=== PATIENT | male | born 1975 | race Caucasian/White ===

== ENCOUNTER 2021-10-21 22:19 | Emergency (ER) | payer OTHER, SELFPAY ==
[2021-10-21 22:35] VITALS: BP 145/76; PULSE 87; RESP 16; TEMP 36.8; O2SAT 100; BMI 28.5
[2021-10-22] MEDS: Ketorolac Tromethamine 30 MG/ML VIAL IM (00:01)
[2021-10-22] MEDS: predniSONE 20 MG TABLET 60 MG PO (00:01)
--- NOTE | 2021-10-22 00:13 | ED_ITS ---
HPI - General Adult General Chief complaint: Neck Pain/Injury Stated complaint: Neck/Back pain Time Seen by Provider: 10/21/21 23:09 Source: patient Mode of arrival: ambulatory Limitations: no limitations History of Present Illness HPI narrative: 46-year-old male with history of chronic cervical disc herniation and lower back disc herniation presents to ED for chronic neck and back pain exacerbation. Patient states no trauma, fever, chills, or any urinary/bowel incontinence. Patient denies any fever chills. Patient states no IV drug use or history of any immunocompromised diseases. Related Data Previous Rx's Medication Instructions Recorded ketorolac 10 mg tablet 10 mg PO TID PRN 5 Days #20 tab 10/22/21 prednisone 20 mg tablet 40 mg PO DAILY 5 Days #10 tab 10/22/21 Allergies Allergy/AdvReac Type Severity Reaction Status Date / Time No Known Allergies Allergy Unverified 05/14/20 16:35 Review of Systems Review of Systems: Chronic neck and back pain Yes all other systems are reviewed and are negative [facility] Social History Social History Advance Directives: No Physical Exam ED Vital Signs: Vital Signs - 24 hr 10/21/21 22:35 Temperature 98.2 F Pulse Rate 87 Respiratory Rate 16 Blood Pressure 145/76 H Pulse Oximetry 100 BMI result Body Mass Index 28.5 Const General: cooperative, healthy appearing, comfortable, no acute distress, well developed, alert, awake and Physically active Orientation/consciousness: patient oriented x3 HENMT Head: Yes normal to inspection, Yes No palpable skull fracture present, Yes normocephalic, Yes atraumatic and No abrasion Eyes General: appearance normal, both eyes and all related structures Neck Neck: Yes normal visual inspection, Yes full ROM, Yes no lymphadenopathy, Yes no meningeal signs, Yes trachea midline, Yes supple, No anterior neck swelling and Yes tender (posterior cervical) Chest Chest palpation & inspection: normal inspection of the chest and normal palpation of entire chest wall Resp Effort & Inspection: normal respiratory effort and able to speak in complete sentences Auscultation: clear to auscultation bilaterally Cardio Jugular venous distension: no JVD Heart sounds: S1 normal heart sound present and S2 normal heart sound present GI Inspection: Yes normal to inspection and No abdominal wall ecchymosis Palpation (GI): Soft to palpation, not firm, nontender, no guarding and not rigid General: No CVA tenderness and Yes no CVA tenderness Back/Spine/Pelvis Back: no CVA tenderness, No CVA tenderness and back tenderness (mild lumbar) Skin General skin exam: no rashes or lesions noted and elasticity normal Neuro General: patient oriented x3, gait normal, no meningeal signs and CN's II-XI intact bilaterally Cranial nerves: Yes CN's II-XII intact bilaterally Extrem General: Yes normal to inspection and Yes full ROM Psych Appearance: grossly normal, well kempt and not disheveled Course Course Course Narrative: No need for repeat imaging. Symptoms are chronic. Pain med ordered. Reevaluation(s) Reevaluation #1: Patient feels better after pain meds. Patient to be discharged Time: 00:18 Medical Decision Making MDM Narrative Medical decision making narrative: Cervical/lumbar radicular pattern Discharge Plan Discharge Clinical Impression: Cervical radiculopathy, Chronic lumbar radiculopathy Patient Disposition: Home, Self-Care Instructions: Lumbar Radiculopathy (ED), Cervical Radiculopathy (ED) Additional Instructions: You will be discharged with pain medication and steroid. Please follow-up with primary care provider. Return to the ED immediately for worsening neck/back pain, fever, chills, urinary/bowel incontinence, paralysis or tingling upper extremities, or any other concerning symptoms. Prescriptions: New prednisone 20 mg tablet 40 mg PO DAILY 5 Days Qty: 10 0RF ketorolac 10 mg tablet 10 mg PO TID PRN (Reason: pain) 5 Days Qty: 20 0RF Rx Instructions: Patient received 30mg IM toradol in the ED. Stand Alone Forms: Work/School Release Interventions: ED Discharge Assessment Last Done: 10/22/21 00:57 Discharge Date/Time: 10/22/21 00:58 Print Language: Estonian
== END 2021-10-22 00:58 | disposition home or self-care (01) ==
PROVIDERS: Emergency Provider Internal Medicine
DX: M54.12 Radiculopathy, cervical region (principal); M54.16 Radiculopathy, lumbar region; M54.50 Low back pain, unspecified; M54.2 Cervicalgia
CPT/HCPCS: 96372; 99284; J1885

== ENCOUNTER 2022-04-20 12:26 | Emergency (ER) | payer OTHER, SELFPAY ==
--- NOTE | ~2022-04-20 | CT_ITS ---
EXAMINATION: CT HEAD WITHOUT CONTRAST CT CERVICAL SPINE WITHOUT CONTRAST CLINICAL INFORMATION: Right arm tingling. Left-sided numbness. Cervical disc herniation. COMPARISON: None available. TECHNIQUE: Contiguous axial imaging was performed from the skull base to vertex without intravenous administration of contrast. Contiguous axial imaging was performed from the upper chest through the skull base without intravenous administration of contrast. Coronal and sagittal reformats were obtained at the acquisition workstation. This CT examination was performed using dose optimization techniques as appropriate, variously including the following: *Automated exposure control. *Adjustment of mA and/or kV according to patient size (this includes techniques or standardized protocols for targeted exams where dose is matched to indication/reason for exam; i.e. extremities or head). *Use of iterative reconstruction technique. DLP: 1314 mGy-cm FINDINGS: Head: There is no evidence of acute intracranial hemorrhage or edematous territorial infarction. There is no abnormal attenuation within the brain parenchyma. Wilder-white matter differentiation is preserved. The ventricles are normal in size and configuration. No evidence for obstructive hydrocephalus. No abnormal mass effect or midline shift. No extra-axial fluid collections. No acute soft tissue or osseous abnormalities. Mild mucosal thickening of the paranasal sinuses. The mastoid air cells and middle ear cavities are clear. Cervical Spine: The atlantooccipital and atlantoaxial articulations remain well aligned. Straightening of the normal cervical lordosis. Otherwise, there is anatomic alignment of the vertebral bodies and posterior elements. No evidence of acute fracture or subluxation. The vertebral body heights are maintained. Moderate degenerative disc disease at C5-C6 with disc-osteophyte complex formation. Mild degenerative disc disease at all additional cervical levels. Facet and uncovertebral joint arthropathy leads osseous encroachment on the neural foramina at C5-C6. There is no prevertebral soft tissue swelling. The thyroid gland and remaining cervical soft tissues are normal in appearance. Moderate paraseptal emphysema of the visualized lung apices. CT/CT cervical spine wo con IMPRESSION: 1. No acute intracranial hemorrhage or edematous territorial infarction. 2. No evidence of acute fracture or traumatic subluxation of the cervical spine. Mild to moderate multilevel degenerative spondyloarthropathy of the cervical spine (most notably at C5-C6).
[2022-04-20 12:34] VITALS: BP 118/75; PULSE 79; RESP 18; TEMP 36.6; O2SAT 98; BMI 27.1
[2022-04-20] MEDS: Ketorolac Tromethamine 30 MG/ML VIAL IM (14:52)
--- NOTE | 2022-04-20 15:11 | ED_ITS ---
HPI - Neck Pain/Injury General Chief Complaint: Neck Pain/Injury Stated Complaint: whole left side numbness Time Seen by Provider: 04/20/22 14:18 Source: patient Mode of arrival: ambulatory History of Present Illness HPI Narrative: 47-year-old male with a past medical history of herniated discs, presenting to the ED complaining of acute on chronic left arm numbness/ tingling and weakness x months. States symptoms have been worsening over the past few days/week. Admits went to urgent care last week for similar symptoms prescribed Prednisone with minimal relief. Also reports intermittent numbness down LLE. Denies fever, chills, headache, vision loss, fever, trauma/fall, CP/SOB, urinary incontinence/retention. Denies taking anticoagulation. MD complaint: neck pain Onset (ago): day(s) Related Data Previous Rx's Medication Instructions Recorded ketorolac 10 mg tablet 10 mg PO TID PRN pain 5 days #20 10/22/21 tabs prednisone 20 mg tablet 40 mg PO DAILY 5 days #10 tabs 10/22/21 acetaminophen 500 mg tablet 500 mg PO Q6H PRN fever or pain 04/20/22 (Tylenol Extra Strength) #14 tabs cyclobenzaprine 5 mg tablet 5 mg PO Q8H PRN pain (scale score 04/20/22 7-10) 5 days #14 tabs lidocaine 5 % topical patch 1 patch topical DAILY PRN pain #30 04/20/22 (Lidoderm) ea naproxen 500 mg tablet 500 mg PO BID PRN pain 10 days #20 04/20/22 tabs Allergies Allergy/AdvReac Type Severity Reaction Status Date / Time No Known Allergies Allergy Unverified 05/14/20 16:35 Review of Systems Review of Systems: Constitutional: No Fever, No Chills, No Fatigue, No Malaise ENT/Mouth: No Ear Pain, No Nasal Congestion, No sore throat, No Swallowing Difficulty Eyes: No Eye Pain, No Swelling, No Redness, No Discharge, No Vision Changes Cardiovascular: No Chest Pain, No SOB, No Edema, No Palpitations Respiratory: No Cough, No Sputum, No Dyspnea Gastrointestinal: No Nausea, No Vomiting, No Diarrhea, No Constipation, No Abdominal pain Genitourinary: No Dysuria, No Hematuria, No Urinary Incontinence/retention, No Flank Pain Musculoskeletal: No joint pain, No Myalgias, No Joint Swelling Skin: No Skin Lesions, No rash Neuro: No Weakness, + Numbness, + Paresthesias, No Loss of Consciousness, No Dizziness, No Headache Yes all other systems are reviewed and are negative Constitutional: Constitutional: Reports as per [facility] Past Medical History Attestation statement: The following information was validated with the patient. Social History Social History Advance Directives: No Advance Directives Information Provided: No Physical Exam Vital Signs: Vital Signs: Last Vital Signs Temp 98 F 04/20/22 12:34 Pulse 79 04/20/22 12:34 Resp 18 04/20/22 12:34 BP 118/75 04/20/22 12:34 Pulse Ox 98 04/20/22 12:34 O2 Del Method 04/20/22 12:34 BMI result Body Mass Index 27.1 Const: General: cooperative, healthy appearing and no acute distress Orientation/consciousness: patient oriented x3 Limitations: no limitations HEENT: Head: Yes normal to inspection and Yes atraumatic Ears: hearing grossly normal bilaterally General nose exam: Normal external nose present Face and sinus: Yes normal facial exam Eyes: General: appearance normal, both eyes and all related structures Pupils: Equal, round and reactive pupils present EOM: EOMs intact bilaterally Neck: Other: No midline cervical spinous tenderness/step-off or deformity. No reproducible MSK tenderness or trapezius muscle tenderness Neck: Yes normal visual inspection and Yes no meningeal signs Resp: Effort & Inspection: normal respiratory effort and no respiratory distress Cardio: Rate: regular rate Heart sounds: S1 normal heart sound present and S2 normal heart sound present Back/Spine/Pelvis: Other: No midline thoracic/lumbar spinous tenderness/step-off or deformity Skin: Rashes: no rashes Wounds: no wounds Neuro: Other: Strength intact throughout. No saddle anesthesia. Sensation intact to light touch. Neurovascular intact distally General: patient oriented x3, gait normal, tone normal, moves all extremities, no meningeal signs, no focal motor deficits and CN's II-XI intact bilaterally Cranial nerves: Yes CN's II-XII intact bilaterally and Yes Equal, round and reactive pupils present Gait exam (Neuro): Normal gait present Motor exam (neuro): 5/5 motor strength present throughout Extrem: General: Yes normal to inspection Course Course Course Narrative: 1719-- CT head/brain wo con/CT cervical spine wo con IMPRESSION: 1. No acute intracranial hemorrhage or edematous territorial infarction. 2. No evidence of acute fracture or traumatic subluxation of the cervical spine. Mild to moderate multilevel degenerative spondyloarthropathy of the cervical spine (most notably at C5-C6). ? >>Results discussed with patient including worrisome signs and symptoms and strict return precautions, and when to return to the emergency department. They verbalized understanding and feel safe for discharge at this time. MDM - Neck Pain/Injury MDM Narrative Medical decision making narrative: 47-year-old male with a past medical history of herniated discs, presenting to the ED complaining of acute on chronic left arm numbness/ tingling and weakness x months. States symptoms have been worsening over the past few days/week. On exam VSS, NAD, well appearing, no midline spinous ttp, no red flag sx, no appreciable weakness. Concern for cervical radiculaopathy vs herniated discs vs MSK pain/spasming. Low suspicion for cauda equina/cord compression or epidural abscess. Lower suspicion for CVA/TIA Plan: Head/C-spine CT, neurosurgical follow-up Differential Diagnosis Differential diagnosis: Likely disc disorder of cervical region, cervical radiculopathy, torticollis and strain of neck muscle Medical Records Attestation: I reviewed the patient's medical records. Lab Data Attestation: I reviewed the patient's lab results. Discharge Plan Discharge Clinical Impression: Arthropathy of cervical spine Patient Disposition: Home, Self-Care Instructions: Neck Pain (ED) Additional Instructions: Your CT scan shows multilevel degenerative changes. Most notably at C5-C6. You need to follow-up with your doctor and a neurosurgeon specialist Flexeril is a muscle relaxer, take at night as it makes you drowsy, do not drive, drink alcohol, or operate machinery while taking it Naproxen as an anti-inflammatory / pain medication, take with food Lidoderm patches are numbing patches, apply to painful area In addition take Tylenol at home If symptoms persist or worsen, pain becomes unbearable, you developed urinary retention or incontinence, or weakness return to the ED Prescriptions: New acetaminophen [Tylenol Extra Strength] 500 mg tablet 500 mg PO Q6H PRN (Reason: fever or pain) Qty: 14 0RF lidocaine [Lidoderm] 5 % adhesive patch,medicated 1 patch topical DAILY MDD remove after 12 hours PRN (Reason: pain) Qty: 30 0RF Rx Instructions: leave on most painful area for up to 12 hrs naproxen 500 mg tablet 500 mg PO BID PRN (Reason: pain) 10 Days Qty: 20 0RF cyclobenzaprine 5 mg tablet 5 mg PO Q8H PRN (Reason: pain (scale score 7-10)) 5 Days Qty: 14 0RF No Action prednisone 20 mg tablet 40 mg PO DAILY 5 Days Qty: 10 0RF ketorolac 10 mg tablet 10 mg PO TID PRN (Reason: pain) 5 Days Qty: 20 0RF Rx Instructions: Patient received 30mg IM toradol in the ED. Referrals: Chikis Richmond MD [Physician] - Kadie Maher MD [Primary Care Provider] -
== END 2022-04-20 17:54 | disposition home or self-care (01) ==
PROVIDERS: Emergency Provider Emergency Medicine; PCP Internal Medicine
DX: M54.2 Cervicalgia (principal); R20.0 Anesthesia of skin; R51.9 Headache, unspecified; Z79.899 Other long term (current) drug therapy
CPT/HCPCS: 70450; 72125; 96372; 99282; 99283; 99284; J1885

== ENCOUNTER 2022-12-02 04:30 | Emergency (ER) | payer OTHER, SELFPAY ==
--- NOTE | 2022-12-02 | ECG_ITS ---
Test Reason : OVERDOSE Blood Pressure : / mmHG Vent. Rate : 085 BPM Atrial Rate : 085 BPM P-R Int : 186 ms QRS Dur : 094 ms QT Int : 404 ms P-R-T Axes : 071 051 059 degrees QTc Int : 480 ms Normal sinus rhythm Prolonged QT Abnormal ECG No previous ECGs available Referred By: Generic ED Physician Electronically Signed By:Orlando Alexander
[2022-12-02 04:37] VITALS: BP 157/97; BP 171/98; PULSE 104; PULSE 93; RESP 26; TEMP 36.1; O2SAT 92; O2SAT 98; BMI 27.2
--- NOTE | 2022-12-02 04:51 | PC.NURSE ---
Pt placed on capnography at this time, VSS.
[2022-12-02 04:53] VITALS: BP 153/95; PULSE 90; RESP 22; TEMP 36.4; O2SAT 96
[2022-12-02 05:21] LABS: Mean Platelet Volume 11.4 fL (9.4-12.4); PLT CLUMP 1; Red Cell Distribution Width 13.3 % (11.0-16.0); SCAN SMEAR FLAG 1
[2022-12-02 05:23] LABS: Basophils Percent Auto 0.4 % (0-2); Eosinophils Absolute Auto 0.3 X10*3/uL (0.0-0.4); Eosinophils Percent Auto 3.5 % (0-4); Hematocrit 44.2 % (42.0-52.0); Hemoglobin 14.4 g/dl (14.0-18.0); Imm Gran Abs Auto 0.02 X10*3/uL (0.00-0.03); Imm Gran Pct Auto 0.3 % (0.0-0.4); Lymphocytes Percent Auto 14.1 % (20-40); MANUAL DIFF FLAG NO; Mean Corpuscular HGB Conc 32.6 g/dl (31.0-36.0); Mean Corpuscular Hemoglobin 30.7 pg (27.0-33.0); Mean Corpuscular Volume 94.2 fL (80.0-98.0); Monocytes Absolute Auto 0.5 X10*3/uL (0.1-1.2); Monocytes Percent Auto 6.7 % (2-11); Neutrophils Absolute Auto 5.4 x10*3/uL (2.0-8.3); Red Blood Count 4.69 X10*6/uL (4.60-5.80); White Blood Count 7.2 X10*3/uL (4.8-10.8)
[2022-12-02 05:47] LABS: Platelet Count 165 X10*3/uL (160-400)
[2022-12-02 06:01] LABS: Alanine Aminotransferase 37 U/L (0-40); Albumin Level 4.4 g/dL (3.5-5.0); Alkaline Phosphatase 87 U/L (39-117); Anion Gap 23 (12-20); Aspartate Amino Transferase 40 U/L (5-37); Bilirubin Total 0.8 mg/dL (0.0-1.0); Blood Urea Nitrogen 13 mg/dL (9-16); Carbon Dioxide 25 mmol/L (22-29); Chloride 99 mmol/L (96-108); Creatinine Clr Calc Pharmacy 101.3; Estimated Glomerular Filt Rate > 60; Ethanol < 10 mg/dL; Glucose Random 263 mg/dL (60-115); Potassium 6.9 mmol/L (3.3-5.1); Salicylate < 5.0 mg/dL (15-30); Sodium 140 mmol/L (135-145); Total Protein 7.2 g/dL (6.5-8.0)
--- NOTE | 2022-12-02 06:23 | ED.OVERDOSE ---
HPI - Overdose General Chief Complaint: Overdose Stated Complaint: Overdose Time Seen by Provider: 12/02/22 06:13 Source: patient Limitations: no limitations History of Present Illness HPI Narrative: 47-year-old male who presents emergency department for evaluation of an overdose. The patient states that he had a neck surgery 3 weeks prior he was having pain. He states that he bought a Percocet on the street and took it orally. He apparently then passed out and was found unresponsive by his brother. First responders gave the patient intranasal Narcan 4 mg x 2 and the patient is now awake and alert. The patient states that yesterday did have vomiting. He states that he vomited 5-6 times. He denied fever, chills, rhinorrhea, sore throat. He states that he has a chronic cough secondary to COPD. He denied chest pain, abdominal pain. He denied diarrhea. Related Data Previous Rx's Medication Instructions Recorded ketorolac 10 mg tablet 10 mg PO TID PRN pain 5 days #20 10/22/21 tabs prednisone 20 mg tablet 40 mg PO DAILY 5 days #10 tabs 10/22/21 acetaminophen 500 mg tablet 500 mg PO Q6H PRN fever or pain 04/20/22 (Tylenol Extra Strength) #14 tabs cyclobenzaprine 5 mg tablet 5 mg PO Q8H PRN pain (scale score 04/20/22 7-10) 5 days #14 tabs lidocaine 5 % topical patch 1 patch topical DAILY PRN pain #30 04/20/22 (Lidoderm) ea naproxen 500 mg tablet 500 mg PO BID PRN pain 10 days #20 04/20/22 tabs Allergies Allergy/AdvReac Type Severity Reaction Status Date / Time No Known Allergies Allergy Unverified 05/14/20 16:35 Review of Systems Review of Systems: Yes all other systems are reviewed and are negative [facility] Past Medical History [facility] Narrative: Past medical history: Asthma, COPD. Past surgical history: Neck surgery 3 weeks prior, patient has had other orthopedic surgeries in the past as well including his right knee, right shoulder and lower back operated on. Social history: He smokes 1 pack of cigarettes per day times many years. He denies alcohol use. He states that he uses marijuana daily and he rarely uses opiates. Social History Social History Alcohol intake: current Smoked in Last 30 Days: No Advance Directives: No Advance Directives Information Provided: Yes Physical Exam Vital Signs: Vital Signs: Last Vital Signs Temp 97.5 F 12/02/22 04:53 Pulse 90 12/02/22 04:53 Resp 22 H 12/02/22 04:53 BP 153/95 H 12/02/22 04:53 Pulse Ox 96 12/02/22 04:53 O2 Del Method Nasal Cannula 12/02/22 04:53 O2 Flow Rate 2 12/02/22 04:53 Oxygen Flow Rate 2 12/02/22 04:37 BMI result Body Mass Index 27.2 Const: General: cooperative and no acute distress Orientation/consciousness: oriented to person and oriented to place Limitations: no limitations HEENT: Head: Yes normal to inspection, Yes normocephalic and Yes atraumatic Ears: external ears normal General nose exam: Normal external nose present Face and sinus: Yes normal facial exam Mouth: Normal oral and palatal mucosa present Throat: Yes posterior oropharynx normal Eyes: General: appearance normal, both eyes and all related structures Pupils: Equal, round and reactive pupils present Neck: Neck: Yes normal visual inspection, Yes no lymphadenopathy, Yes trachea midline and Yes supple Chest: Chest palpation & inspection: normal inspection of the chest and normal palpation of entire chest wall Resp: Effort & Inspection: normal respiratory effort and able to speak in complete sentences Auscultation: clear to auscultation bilaterally Cardio: Rate: regular rate Rhythm: regular rhythm Heart sounds: S1 normal heart sound present, S2 normal heart sound present and no murmurs GI: Inspection: Yes normal to inspection Palpation (GI): Soft to palpation, nontender and no guarding Auscultation: normal bowel sounds : General: Yes no CVA tenderness Back/Spine/Pelvis: Back: no CVA tenderness Skin: General skin exam: no rashes or lesions noted Neuro: General: oriented to person and oriented to place Cranial nerves: Yes CN's II-XII intact bilaterally and Yes Equal, round and reactive pupils present Cognition (Neuro): normal cognition Motor exam (neuro): 5/5 motor strength present throughout Extrem: General: Yes normal to inspection Psych: Appearance: grossly normal Speech and movement: Normal speech and movement present Affect: normal affect Attitude: cooperative Thought process: Normal thought process present Thought content: Normal thought content present Medical Decision Making Medical Decision Making [facility] Narrative: 47-year-old male who is brought to emergency department by ambulance after being found unresponsive by his brother with respiratory distress. The patient does admit to taking 1 Percocet that he bought on the street. Patient did receive Narcan 4 mg intranasally x2 which caused him to wake up and come back to his baseline. Patient states that he was vomiting multiple times yesterday but had no other complaints. I did order laboratory evaluation to include CBC, CMP, urine drug screen, alcohol level, salicylates, 12 EKG. 0627: My independent interpretation of the patient's laboratory evaluation is as follows: CBC was normal. Glucose was elevated 265. BUN and creatinine were normal 13 and 0.95. Potassium size 6.9. Twelve EKG was unremarkable with no peaked T-waves. Patient's presentation is consistent with an narcotic overdose. The patient does have a high potassium 6.9 without a clear cause, the patient's EKG did not reveal any significant abnormalities or peaked T-waves. I will repeat the patient's potassium. The patient will be observed in the emergency department for several hours per the patient will need SUDE exam as well. 0752: Repeat potassium was 3.8. The patient will be kept in the emergency department for further observation to make sure that he does not have repeat narcosis. Patient is also waiting for his SUDE exam . At the end of my shift, patient's care was turned over to my colleague, Dr. Blanca Differential Diagnosis Differential diagnosis includes but is not limited to narcotic overdose, benzodiazepine overdose Lab Data [facility] Lab Attestation statement: I reviewed the patient's lab results. Please see [facility] 12/02/22 05:17 12/02/22 05:17 Labs: Lab Results 12/02/22 12/02/22 12/02/22 Range/Units 05:17 05:17 06:45 WBC 7.2 (4.8-10.8) X10*3/uL RBC 4.69 (4.60-5.80) X10*6/uL Hgb 14.4 (14.0-18.0) g/dl Hct 44.2 (42.0-52.0) % MCV 94.2 (80.0-98.0) fL MCH 30.7 (27.0-33.0) pg MCHC 32.6 (31.0-36.0) g/dl RDW 13.3 (11.0-16.0) % Plt Count 165 (160-400) X10*3/uL MPV 11.4 (9.4-12.4) fL Immature Gran % (Auto) 0.3 (0.0-0.4) % Neut % (Auto) 75.0 H (45-73) % Lymph % (Auto) 14.1 L (20-40) % [place] % (Auto) 6.7 (2-11) % Eos % (Auto) 3.5 (0-4) % Baso % (Auto) 0.4 (0-2) % Lymph # (Auto) 1.0 L (1.2-4.9) X10*3/uL [place] # (Auto) 0.5 (0.1-1.2) X10*3/uL Eos # (Auto) 0.3 (0.0-0.4) X10*3/uL Baso # (Auto) 0.0 (0.0-0.2) X10*3/uL Abs Immat Gran (auto) 0.02 (0.00-0.03) X10*3/uL Absolute Neuts (auto) 5.4 (2.0-8.3) x10*3/uL Absolute Nucleated RBC 0.000 (0.0-0.012) X10*3/uL Nucleated RBC % (auto) 0.0 (0.0-0.2) /100WBC Sodium 140 (135-145) mmol/L Potassium 6.9 H* 3.8 D (3.3-5.1) mmol/L Chloride 99 (96-108) mmol/L Carbon Dioxide 25 (22-29) mmol/L Anion Gap 23 H (12-20) BUN 13 (9-16) mg/dL Creatinine 0.95 (0.5-1.4) mg/dL Estim Creat Clear Calc 101.3 Estimated GFR > 60 Random Glucose 263 H (60-115) mg/dL Calcium 7.0 L (8.4-10.2) mg/dL Total Bilirubin 0.8 (0.0-1.0) mg/dL AST 40 H (5-37) U/L ALT 37 (0-40) U/L Alkaline Phosphatase 87 (39-117) U/L Total Protein 7.2 (6.5-8.0) g/dL Albumin 4.4 (3.5-5.0) g/dL Salicylates < 5.0 L (15-30) mg/dL Ethyl Alcohol < 10 mg/dL Independent Interpretation I performed an independent interpretation of an: EKG Interpretation: My independent interpretation patient's 12 EKG done at 05:20 hours is as follows: Normal sinus rhythm rate of 85, normal GA and QRS duration, prolonged QTC of 480 milliseconds, no ST segment elevation, no ST segment depression, no significant T-wave abnormalities, no PT waves, no PACs no PVCs. Discharge Plan Discharge Clinical Impression: Narcotic overdose Patient Disposition: Still a Patient Prescriptions: No Action prednisone 20 mg tablet 40 mg PO DAILY 5 Days Qty: 10 0RF ketorolac 10 mg tablet 10 mg PO TID PRN (Reason: pain) 5 Days Qty: 20 0RF Rx Instructions: Patient received 30mg IM toradol in the ED. acetaminophen [Tylenol Extra Strength] 500 mg tablet 500 mg PO Q6H PRN (Reason: fever or pain) Qty: 14 0RF lidocaine [Lidoderm] 5 % adhesive patch,medicated 1 patch topical DAILY MDD remove after 12 hours PRN (Reason: pain) Qty: 30 0RF Rx Instructions: leave on most painful area for up to 12 hrs naproxen 500 mg tablet 500 mg PO BID PRN (Reason: pain) 10 Days Qty: 20 0RF cyclobenzaprine 5 mg tablet 5 mg PO Q8H PRN (Reason: pain (scale score 7-10)) 5 Days Qty: 14 0RF
[2022-12-02 07:05] LABS: Potassium 3.8 mmol/L (3.3-5.1)
[2022-12-02 08:00] VITALS: BP 152/99; PULSE 89; RESP 16; O2SAT 93
[2022-12-02 08:40] VITALS: BP 140/102; PULSE 78; RESP 16; TEMP 36.4; O2SAT 93
[2022-12-02 08:57] LABS: Amphetamine Screen Urine Not Detected (Not Detect); Barbiturates, Urine Not Detected (Not Detect); Benzodiazepines Screen Urine Not Detected (Not Detect); Cannabinoid Screen Urine POSITIVE (Not Detect); Cocaine Screen Urine POSITIVE (Not Detect); Fentanyl, urine POSITIVE (Not Detect); Opiate Screen Urine Not Detected (Not Detect); Phencyclidine Screen Urine Not Detected (Not Detect)
--- NOTE | 2022-12-02 10:20 | HO.SUDE ---
This documentation writer met w/ patient, patient was alert, sitting up in bed, on nasal cannula. Patient reports 3 weeks had cervical spine surgery, artifical disk placed by Dr. Alba at [facility]. Patient states received a short course, 5 days of Percocet 5mgs. Patient states for past 1.5 weeks has been staying at [facility], participants have to leave the intermediate between 7:30am and 5:30pm, patient reports walking around during that time with belongings. Due to these circumstances, patient reports pain had increased. Patient used an illicit percocet while staying at brothers home. 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 Patient states 3 years ago, after of , reoccurrence for 9 months, daily use of ESVIN/ETOH, after 9 months, went to [facility], [facility] then [facility] level of care. Patient reports no substance use in 2.5 years prior to illicit percocet use. Patient reports no hx of opiate use, no hx of opiate overdose. Harm reduction reviewed, opiate overdose prevention reviewed. Patient verbalized understanding. 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 Patient states plans to take Gabapentin, Flexeril and Aleve for pain management, which patient was prescribed by PCP.
== END 2022-12-02 12:08 | disposition home or self-care (01) ==
PROVIDERS: Emergency Provider Emergency Medicine Emergency Medical Services
DX: T40.2X1A Poisoning by other opioids, accidental (unintentional), initial encounter (principal); Y92.9 Unspecified place or not applicable; Z79.899 Other long term (current) drug therapy; Z71.51 Drug abuse counseling and surveillance of drug abuser
CPT/HCPCS: 36415; 80053; 80179; 80307; 82077; 84132; 85025; 93005; 99284; 99285